=== PATIENT | female | born 1960 | race Hispanic/Latino ===

== ENCOUNTER → 2017-08-23 | Outpatient (CLI) | payer MEDICAID ==
[~2017-08-23] MED LIST: AMLO5TAB2 PO; ASPI-1181 PO; ATOR40TA71 PO; BENZ-51 PO; CITA-107 PO; ERGO500014 PO; FENO54TA6 PO; FERR325T22 PO; FURO20TA4 PO; FUROSEMIDE 10 MG/ML 4ML VIAL ONE; GABA-531 PO; GEMF600T3 PO; GLIM2TAB3 PO; HYDR-3421 PO; INSU100V12 SQ; METO-391 PO; OMEP20CA10 PO; ONDA4TAB9 PO; OSELTAMIVIR PHOSPHATE 75 MG CAP ONE; PARO10TA71 PO; PRAV40TA3 PO; SACU1TAB PO
== END | disposition home or self-care (01) ==
LOC: SHCH 10:30
PROVIDERS: ATTEND Internal Medicine Cardiovascular Disease
DX: I11.0 Hypertensive heart disease with heart failure (principal)
CPT/HCPCS: 93306; J1940

== ENCOUNTER 2017-08-24 17:20 | Inpatient (IN) | payer MEDICAID ==
[~2017-08-24] VITALS: Ht 177.8 cm; Wt 83.9 kg
[~2017-08-24 17:20] MED LIST changes: -ATOR40TA71 PO; -FUROSEMIDE 10 MG/ML 4ML VIAL ONE; -HYDR-3421 PO; -METO-391 PO; -OMEP20CA10 PO; -OSELTAMIVIR PHOSPHATE 75 MG CAP ONE; -PARO10TA71 PO; -SACU1TAB PO
[2017-08-24 17:50] LABS: BASOPHILS % (AUTO) 0.5 % (0.0-5.0); HEMATOCRIT 28.4 % (36-48); LYMPHOCYTES % (AUTO) 8.8 % (21.0-51.0); MEAN CORPUSCULAR HEMOGLOBIN 31.1 pg (27.0-33.0); MEAN CORPUSCULAR HGB CONC 33.8 g/dL (32.0-36.0); MEAN CORPUSCULAR VOLUME 91.9 fL (79-99); MONOCYTES % (AUTO) 9.7 % (3.0-13.0); PLATELET COUNT (AUTO) 145 K/uL (130-400); RED BLOOD CELL COUNT(AUTO) 3.09 MIL/uL (4.00-5.50); RED CELL DISTRIBUTION WIDTH 14.4 % (11.0-15.5); WHITE BLOOD COUNT (AUTO) 6.7 K/uL (4.8-10.8)
[2017-08-24 18:03] LABS: INR 1.05 (0.85-1.15); PARTIAL THROMBOPLASTIN TIME 29.2 SEC (26.3-35.5)
[2017-08-24 18:05] LABS: CARBON DIOXIDE 30 mmol/L (21-32); CHLORIDE 99 mmol/L (101-111); CREATININE 1.9 mg/dL (0.5-1.5); GLOMERULAR FILTR. RATE CALC 29 mL/min (>60); GLUCOSE,RANDOM 275 mg/dL (70-105); POTASSIUM 3.8 mmol/L (3.5-5.1); SODIUM SERUM 137 mmol/L (136-145); UREA NITROGEN, BLOOD 34 mg/dL (7-18)
[2017-08-24 18:20] LABS: ALANINE AMINOTRANSFERASE 18 U/L (12-78); ASPARTATE AMINOTRANSFERASE 30 U/L (10-37); BILIRUBIN,TOTAL 0.6 mg/dL (0.2-1.0); CREATINE KINASE MB < 0.5 ng/mL (0.5-3.6); CREATINE KINASE, TOTAL 24 U/L (21-232); TOTAL PROTEIN, SERUM 7.1 g/dL (6.0-8.3)
[2017-08-24 18:24] LABS: B-TYPE NATRIURETIC PEPTIDE 1450 pg/mL (0-100)
[2017-08-24] MEDS ORDERED: SODIUM CHLORIDE 0.9% 10 ML VIAL IVP PRN (19:45)
[2017-08-24 21:44] LABS: APPEARANCE,URINE Clear (CLEAR); BILIRUBIN,URINE Negative (NEGATIVE); COLOR,URINE Yellow (YELLOW); GLUCOSE, URINE (UA) >=1000 mg/dL (NEGATIVE); KETONES,URINE Negative (NEGATIVE); LEUKOCYTE ESTERASE ,URINE Small (NEGATIVE); NITRATE,URINE Negative (NEGATIVE); OCCULT BLOOD,URINE Negative (NEGATIVE); PH,URINE 5.5 (5.0-8.0); PROTEIN,URINE POS 2+ (NEGATIVE)
[2017-08-24 21:56] LABS: AMPHET/METH SCREEN,URINE NEGATIVE (NEGATIVE); BARBITURATE SCREEN, URINE NEGATIVE (NEGATIVE); BENZODIAZEPINES SCREEN,URINE NEGATIVE (NEGATIVE); CANNABINOID SCREEN,URINE NEGATIVE (NEGATIVE); COCAINE SCREEN,URINE NEGATIVE (NEGATIVE); OPIATE SCREEN,URINE NEGATIVE (NEGATIVE); PHENCYCLIDINE SCREEN,URINE NEGATIVE (NEGATIVE)
[2017-08-24 22:44] VITALS: BP 117/63
[2017-08-24 22:45] LABS: BACTERIA,URINE Few /HPF (None Seen); MUCUS,URINE Moderate LPF (None Seen); RBC,URINE 0-1 /HPF (0-1); SQUAMOUS EPITHELIAL CELL,UR Moderate /LPF (0-2)
[2017-08-25] MEDS ORDERED: OMEP20CA10 PO (00:25)
[2017-08-25] MEDS ORDERED: PARO10TA71 PO (00:25)
[2017-08-25] MEDS ORDERED: HYDR-3421 PO (00:25)
[2017-08-25] MEDS ORDERED: ATOR40TA71 PO (00:25)
[2017-08-25] MEDS ORDERED: METO-391 PO (00:25)
[2017-08-25] MEDS ORDERED: SACU1TAB PO (00:25)
[2017-08-25] MEDS ORDERED: DEXTROSE 50%-WATER 50 ML DISP.SYRIN IV PRN (00:45)
[2017-08-25] MEDS ORDERED: CLONIDINE HCL 0.1 MG TABLET PO PRN (00:45)
[2017-08-25] MEDS ORDERED: DiphenhydrAMINE HCL 50 MG/ML VIAL IVP PRN (00:45)
[2017-08-25] MEDS ORDERED: POTASSIUM CHLORIDE 10% ELIXIR 20 MEQ/15 ML UDCUP PO PRN (00:45)
[2017-08-25] MEDS ORDERED: ONDANSETRON HCL 4 MG/2 ML VIAL IVP PRN (00:45)
[2017-08-25] MEDS ORDERED: MAG HYDROX/AL HYDROX/SIMETH ES 30 ML SUSP UDCUP PO PRN (00:45)
[2017-08-25] MEDS ORDERED: DIPHENHYDRAMINE HCL 25 MG CAPSULE PO PRN (00:45)
[2017-08-25] MEDS ORDERED: GLUCAGON 1MG KIT 1 MG ML IM PRN (00:45)
[2017-08-25] MEDS ORDERED: ACETAMINOPHEN 325 MG TAB PO PRN ×2 (00:45)
[2017-08-25] MEDS ORDERED: NITROGLYCERIN 0.4 MG SL TAB SL PRN (00:45)
[2017-08-25] MEDS ORDERED: LIDOCAINE HCL-MPF 1% 2ML VIAL IJ PRN (00:45)
[2017-08-25] MEDS ORDERED: ZOLPIDEM TARTRATE 5 MG TAB PO PRN (00:45)
[2017-08-25] MEDS ORDERED: GUAIFENESIN-DM 200/20 MG 10 ML PO PRN (00:45)
[2017-08-25] MEDS ORDERED: LACTULOSE 20 GM/30 ML UDCUP PO PRN (00:45)
[2017-08-25] MEDS ORDERED: GUAIFENESIN SUGAR-FREE 100 MG/5 ML UDCUP PO PRN (00:45)
[2017-08-25] MEDS ORDERED: POTASSIUM CHLORIDE 20MEQ/100ML 100 ML IV PRN (00:45)
[2017-08-25 03:00] VITALS: BP 125/68
[2017-08-25 05:45] LABS: HEMATOCRIT 26.6 % (36-48); MEAN CORPUSCULAR HEMOGLOBIN 32.8 pg (27.0-33.0); MEAN CORPUSCULAR HGB CONC 35.8 g/dL (32.0-36.0); MEAN CORPUSCULAR VOLUME 91.7 fL (79-99); PLATELET COUNT (AUTO) 143 K/uL (130-400); RED BLOOD CELL COUNT(AUTO) 2.91 MIL/uL (4.00-5.50); RED CELL DISTRIBUTION WIDTH 14.6 % (11.0-15.5); WHITE BLOOD COUNT (AUTO) 5.9 K/uL (4.8-10.8)
[2017-08-25 06:05] LABS: CREATININE 1.8 mg/dL (0.5-1.5); POTASSIUM 3.4 mmol/L (3.5-5.1)
[2017-08-25] MEDS: POTASSIUM CHLORIDE 20 MEQ ERTAB PO PRN ×2 (06:30→09:55)
[2017-08-25] MEDS ORDERED: COMPOUND PO MISCELLANEOUS 1 EACH MISC MISC PRN (07:00)
[2017-08-25] MEDS ORDERED: INSULIN R PO SS1 SQ SCH (07:30)
[2017-08-25 08:00] VITALS: BP 116/60
[2017-08-25] MEDS ORDERED: FUROSEMIDE 10 MG/ML 4ML VIAL IVP SCH (09:00)
[2017-08-25] MEDS ORDERED: OSELTAMIVIR PHOSPHATE 300 MG, COMPOUNDING VEHICLE SF NO.9 50 ML PO SCH ×2 (09:00)
[2017-08-25] MEDS ORDERED: PNEUMOCOCCAL VACCINE POLYVALENT 0.5 ML/VIAL [PPV] IM SCH (10:45)
[2017-08-25] MEDS ORDERED: OSELTAMIVIR PHOSPHATE 75 MG CAP PO SCH (21:00)
== END 2017-08-25 11:50 | disposition home or self-care (01) | DRG 194 ==
LOC: EDH 17:20 → EDHIP 17:21 → 4BH 21:51
PROVIDERS: ADMIT Family Medicine; ATTEND Family Medicine
DX: I11.0 Hypertensive heart disease with heart failure (principal); E11.40 Type 2 diabetes mellitus with diabetic neuropathy, unspecified; R55 Syncope and collapse; I50.41 Acute combined systolic (congestive) and diastolic (congestive) heart failure; I25.10 Atherosclerotic heart disease of native coronary artery without angina pectoris; E78.5 Hyperlipidemia, unspecified; F32.9 Major depressive disorder, single episode, unspecified; J10.1 Influenza due to other identified influenza virus with other respiratory manifestations; N28.9 Disorder of kidney and ureter, unspecified; F41.9 Anxiety disorder, unspecified
CPT/HCPCS: 36415; 71045; 80048; 80053; 80305; 81001; 82550; 82553; 82948; 83880; 84484; 85025; 85027; 85610; 85730; 87804; 90732; 93005; 93306; J1815; J1940; J2405

== ENCOUNTER 2018-05-17 16:56 | Emergency (ER) | payer MEDICAID, OTHER ==
[~2018-05-17 16:56] MED LIST changes: -AMLO5TAB2 PO; +ATOR40TA71 PO; -CITA-107 PO; -ERGO500014 PO; -FENO54TA6 PO; -GEMF600T3 PO; +GEMF600T4 PO; +HYDR-3421 PO; +METO-391 PO; +OMEP20CA10 PO; -ONDA4TAB9 PO; +PARO10TA71 PO; -PRAV40TA3 PO; +SACU1TAB PO
[2018-05-17] MEDS ORDERED: METOCLOPRAMIDE 10 MG/2 ML VIAL ONE (17:38)
[2018-05-17] MEDS ORDERED: MECLIZINE HCL 25 MG TABLET ONE (17:38)
[2018-05-17] MEDS ORDERED: SODIUM CHLORIDE 0.9% 50 ML IV ONE (17:39)
[2018-05-17 17:40] LABS: APPEARANCE,URINE Cloudy (CLEAR); BILIRUBIN,URINE Negative (NEGATIVE); COLOR,URINE Yellow (YELLOW); GLUCOSE, URINE (UA) Negative (NEGATIVE); KETONES,URINE Negative (NEGATIVE); LEUKOCYTE ESTERASE ,URINE Moderate (NEGATIVE); NITRATE,URINE Negative (NEGATIVE); OCCULT BLOOD,URINE Negative (NEGATIVE); PROTEIN,URINE POS 2+ (NEGATIVE); UROBILINOGEN,URINE 0.2 mg/dL (0.2-1.0)
[2018-05-17 17:45] LABS: BASOPHILS % (AUTO) 0.6 % (0.0-5.0); EOSINOPHILS % (AUTO) 1.6 % (0.0-8.0); HEMATOCRIT 30.3 % (36-48); LYMPHOCYTES % (AUTO) 10.8 % (21.0-51.0); MEAN CORPUSCULAR HEMOGLOBIN 32.8 pg (27.0-33.0); MEAN CORPUSCULAR HGB CONC 34.6 g/dL (32.0-36.0); MONOCYTES % (AUTO) 5.1 % (3.0-13.0); NEUTROPHILS % (AUTO) 81.9 % (40.0-77.0); PLATELET COUNT (AUTO) 194 K/uL (130-400); RED BLOOD CELL COUNT(AUTO) 3.19 MIL/uL (4.00-5.50); RED CELL DISTRIBUTION WIDTH 14.2 % (11.0-15.5); WHITE BLOOD COUNT (AUTO) 7.7 K/uL (4.8-10.8)
[2018-05-17 17:53] LABS: BACTERIA,URINE Rare /HPF (None Seen); RBC,URINE None Seen /HPF (0-1)
[2018-05-17 17:54] LABS: TRANSITIONAL EPI CELLS,URINE Moderate /HPF (None Seen)
[2018-05-17 18:01] LABS: CREATININE 1.6 mg/dL (0.5-1.5); POTASSIUM 4.2 mmol/L (3.5-5.1)
[2018-05-17 18:05] LABS: ALBUMIN 3.4 g/dL (3.5-5.0); BILIRUBIN,TOTAL 0.4 mg/dL (0.2-1.0)
[2018-05-17] MEDS ORDERED: SODIUM CHLORIDE 0.9% 500ML 500 ML IV ONE (18:11)
== END 2018-05-17 19:52 | disposition home or self-care (01) ==
LOC: EDH 16:56
DX: R42 Dizziness and giddiness (principal); R53.1 Weakness; F41.9 Anxiety disorder, unspecified; I11.0 Hypertensive heart disease with heart failure; I50.9 Heart failure, unspecified; I25.10 Atherosclerotic heart disease of native coronary artery without angina pectoris; E11.9 Type 2 diabetes mellitus without complications; E78.5 Hyperlipidemia, unspecified; Z90.49 Acquired absence of other specified parts of digestive tract; Z98.890 Other specified postprocedural states
CPT/HCPCS: 36415; 80053; 81001; 82550; 83605; 84484; 85025; 93005; 96361; 96374; 99285; J2765; J7040

== ENCOUNTER 2018-05-31 05:46 | Observation (INO) | payer MEDICAID ==
[2018-05-29 09:44] LABS: BASOPHILS % (AUTO) 0.6 % (0.0-5.0); EOSINOPHILS % (AUTO) 2.4 % (0.0-8.0); HEMATOCRIT 32.1 % (36-48); LYMPHOCYTES % (AUTO) 12.4 % (21.0-51.0); MEAN CORPUSCULAR HEMOGLOBIN 32.5 pg (27.0-33.0); MEAN CORPUSCULAR HGB CONC 34.7 g/dL (32.0-36.0); MEAN CORPUSCULAR VOLUME 93.6 fL (79-99); NEUTROPHILS % (AUTO) 77.6 % (40.0-77.0); NUCLEATED RED BLOOD CELLS 0.1 % (0.0-0.19); PLATELET COUNT (AUTO) 199 K/uL (130-400); RED BLOOD CELL COUNT(AUTO) 3.43 MIL/uL (4.00-5.50); RED CELL DISTRIBUTION WIDTH 13.9 % (11.0-15.5); WHITE BLOOD COUNT (AUTO) 7.3 K/uL (4.8-10.8)
[2018-05-29 09:45] VITALS: BP 98/61
[2018-05-29 09:54] LABS: POTASSIUM 4.7 mmol/L (3.5-5.1)
[2018-05-29 09:59] LABS: INR 0.98 (0.85-1.15); PARTIAL THROMBOPLASTIN TIME 29.3 SEC (26.3-35.5); PROTHROMBIN TIME 10.3 SEC (9.6-11.6)
[~2018-05-31] VITALS: Ht 175.3 cm; Wt 88.6 kg
[2018-05-31] VITALS (12 sets, daily range): BP systolic 95–116; BP diastolic 54–71
[~2018-05-31 05:46] MED LIST changes: +ALEN70TA47 PO; -BENZ-51 PO; +CARV6.25 PO; +ERGO500014 PO; -GLIM2TAB3 PO; -HYDR-3421 PO; +HYDR-4153 PO; +INSU100I24 SQ; -INSU100V12 SQ; +ISOS30TA6 PO; +LIRA0.6P SQ; +LORA10TA7 PO; +MECL-111 PO; -METO-391 PO; +MONT10TA24 PO; -SACU1TAB PO; +SPIR25TA6 PO
[2018-05-31] MEDS ORDERED: SODIUM CHLORIDE 0.9% 1000ML 1,000 ML IV ONE (06:56)
[2018-05-31] MEDS: INSULIN R PO SS1 SQ SCH ×4 (07:00→21:49)
[2018-05-31] MEDS ORDERED: GLUCAGON 1MG KIT 1 MG ML IM PRN ×2 (07:00→09:00)
[2018-05-31] MEDS ORDERED: PHARMACY COMMUNICATION MISC SCH (07:00)
[2018-05-31] MEDS ORDERED: DEXTROSE 50%-WATER 50 ML DISP.SYRIN IV PRN ×2 (07:00→09:00)
[2018-05-31] MEDS ORDERED: BUPIVACAINE/PF 0.25% 50ML VIAL IJ ONE (07:14)
[2018-05-31] MEDS ORDERED: LIDOCAINE HCL 1% MDV 50ML VIAL ONE (07:14)
[2018-05-31] MEDS ORDERED: CEFAZOLIN SODIUM 1 GM VIAL ONE (07:15)
[2018-05-31] MEDS ORDERED: MIDAZOLAM HCL 1 MG/ML 2ML VIAL ONE ×2 (07:52→08:07)
[2018-05-31] MEDS ORDERED: MEPERIDINE-PF 25 MG/ML SYG ONE ×2 (07:52→08:08)
[2018-05-31] MEDS: HYDRALAZINE HCL 25 MG TABLET PO SCH ×3 (09:00→21:36)
[2018-05-31] MEDS ORDERED: ACETAMINOPHEN-CODEINE 300/30MG TAB PO PRN ×2 (09:00)
[2018-05-31] MEDS: SPIRONOLACTONE 25 MG TAB PO SCH ×3 (09:00→21:00)
[2018-05-31] MEDS ORDERED: ACETAMINOPHEN 325 MG TAB PO PRN (09:00)
[2018-05-31] MEDS ORDERED: ONDANSETRON HCL 4 MG/2 ML VIAL IV PRN (09:00)
[2018-05-31] MEDS: ISOSORBIDE MONO 30MG TAB SR PO SCH ×2 (09:00→10:10)
[2018-05-31] MEDS: FUROSEMIDE 20 MG TABLET PO SCH ×3 (09:00→21:00)
[2018-05-31] MEDS: CARVEDILOL 6.25 MG TABLET PO SCH ×2 (10:08→21:37)
[2018-05-31] MEDS: GEMFIBROZIL 600 MG TABLET PO SCH ×2 (10:08→21:38)
[2018-05-31] MEDS: GABAPENTIN 300 MG CAPSULE PO SCH ×3 (10:13→21:37)
[2018-05-31] MEDS: PANTOPRAZOLE SODIUM 40 MG TABLET.DR PO SCH (10:13)
[2018-05-31] MEDS: PAROXETINE HCL 20 MG TABLET PO SCH (10:14)
[2018-05-31] MEDS: INSULIN HUMULIN R 100 UNIT/ML 3ML SQ SCH ×3 (11:30→21:00)
[2018-05-31] MEDS ORDERED: FERROUS SULFATE 325 MG TABLET.DR PO SCH (17:00)
[2018-05-31] MEDS ORDERED: MONTELUKAST SODIUM 10 MG TAB PO SCH (21:00)
[2018-05-31] MEDS ORDERED: LORATADINE 10 MG TABLET PO SCH (21:00)
[2018-05-31] MEDS ORDERED: ATORVASTATIN CALCIUM 40 MG TABLET PO SCH (21:00)
[2018-06-01 03:00] VITALS: BP 121/72
[2018-06-01 03:43] LABS: HEMATOCRIT 29.7 % (36-48); MEAN CORPUSCULAR HEMOGLOBIN 31.9 pg (27.0-33.0); MEAN CORPUSCULAR HGB CONC 34.1 g/dL (32.0-36.0); MEAN CORPUSCULAR VOLUME 93.4 fL (79-99); PLATELET COUNT (AUTO) 161 K/uL (130-400); RED BLOOD CELL COUNT(AUTO) 3.18 MIL/uL (4.00-5.50); WHITE BLOOD COUNT (AUTO) 9.8 K/uL (4.8-10.8)
[2018-06-01 03:49] LABS: CREATININE 1.9 mg/dL (0.5-1.5); POTASSIUM 4.3 mmol/L (3.5-5.1)
[2018-06-01] MEDS: PANTOPRAZOLE SODIUM 40 MG TABLET.DR PO SCH (07:02)
[2018-06-01] MEDS: INSULIN R PO SS1 SQ SCH ×2 (07:02→11:30)
[2018-06-01 07:29] VITALS: BP 132/73
[2018-06-01] MEDS: INSULIN HUMULIN R 100 UNIT/ML 3ML SQ SCH (07:30)
[2018-06-01] MEDS ORDERED: INSULIN DEGLUDEC 40 UNIT SQ SCH ×2 (08:00)
[2018-06-01] MEDS ORDERED: ASPIRIN 81 MG EC TAB PO SCH (09:00)
[2018-06-01] MEDS: GABAPENTIN 300 MG CAPSULE PO SCH (10:49)
[2018-06-01] MEDS: SPIRONOLACTONE 25 MG TAB PO SCH (10:50)
[2018-06-01] MEDS: ISOSORBIDE MONO 30MG TAB SR PO SCH (10:50)
[2018-06-01] MEDS: GEMFIBROZIL 600 MG TABLET PO SCH (10:50)
[2018-06-01] MEDS: HYDRALAZINE HCL 25 MG TABLET PO SCH (10:51)
[2018-06-01] MEDS: PAROXETINE HCL 20 MG TABLET PO SCH (10:52)
[2018-06-01] MEDS: CARVEDILOL 6.25 MG TABLET PO SCH (10:53)
[2018-06-01] MEDS: FUROSEMIDE 20 MG TABLET PO SCH (10:54)
[2018-06-01 11:15] VITALS: BP 111/69
== END 2018-06-01 14:45 | disposition home or self-care (01) ==
LOC: SUH 05:46 → DAH 05:46 → 2AH 05:47 → SUH 05:47
PROVIDERS: ADMIT Internal Medicine; ATTEND Internal Medicine
DX: I25.5 Ischemic cardiomyopathy (principal); I11.0 Hypertensive heart disease with heart failure; I50.22 Chronic systolic (congestive) heart failure; E11.40 Type 2 diabetes mellitus with diabetic neuropathy, unspecified; E78.5 Hyperlipidemia, unspecified; I25.2 Old myocardial infarction; I25.10 Atherosclerotic heart disease of native coronary artery without angina pectoris; F32.9 Major depressive disorder, single episode, unspecified; F41.9 Anxiety disorder, unspecified; Z82.3 Family history of stroke; Z82.49 Family history of ischemic heart disease and other diseases of the circulatory system; Z83.3 Family history of diabetes mellitus
CPT/HCPCS: 33249; 36415 ×2; 71046; 80048 ×2; 82948 ×6; 85025; 85027; 85610; 85730; 96372 ×2; A4606; C1722; C1895; G0378 ×33; J0690; J1815 ×6; J2175 ×2; J2250 ×2; J3490 ×2; J7030; 99156; 99157

== ENCOUNTER 2018-06-03 16:48 | Emergency (ER) | payer MEDICAID ==
[2018-06-03 18:50] LABS: BASOPHILS % (AUTO) 0.5 % (0.0-5.0); EOSINOPHILS % (AUTO) 3.1 % (0.0-8.0); HEMATOCRIT 29.5 % (36-48); LYMPHOCYTES % (AUTO) 10.4 % (21.0-51.0); MEAN CORPUSCULAR HEMOGLOBIN 31.2 pg (27.0-33.0); MEAN CORPUSCULAR HGB CONC 33.2 g/dL (32.0-36.0); PLATELET COUNT (AUTO) 169 K/uL (130-400); RED BLOOD CELL COUNT(AUTO) 3.14 MIL/uL (4.00-5.50); RED CELL DISTRIBUTION WIDTH 13.9 % (11.0-15.5); WHITE BLOOD COUNT (AUTO) 8.6 K/uL (4.8-10.8)
[2018-06-03 19:17] LABS: POTASSIUM 4.3 mmol/L (3.5-5.1)
[2018-06-03] MEDS ORDERED: INSULIN HUMULIN R 100 UNIT/ML 3ML ONE (19:29)
== END 2018-06-03 19:52 | disposition home or self-care (01) ==
LOC: EDH 16:48
DX: Z48.01 Encounter for change or removal of surgical wound dressing (principal); E11.65 Type 2 diabetes mellitus with hyperglycemia; E11.40 Type 2 diabetes mellitus with diabetic neuropathy, unspecified; I11.0 Hypertensive heart disease with heart failure; I50.9 Heart failure, unspecified; I25.10 Atherosclerotic heart disease of native coronary artery without angina pectoris; E78.5 Hyperlipidemia, unspecified
CPT/HCPCS: 36415; 71045; 76882; 80048; 85025; 93005; 96372; 99285; J1815

== ENCOUNTER 2018-08-27 17:46 | Emergency (ER) | payer MEDICAID ==
[~2018-08-27 17:46] MED LIST changes: +ALEN70TA10 PO; -ALEN70TA47 PO; -GEMF600T4 PO; +GEMF600T5 PO
[2018-08-27] MEDS ORDERED: FUROSEMIDE 10 MG/ML 2ML VIAL ONE (18:35)
[2018-08-27] MEDS ORDERED: FUROSEMIDE 10 MG/ML 4ML VIAL ONE (18:35)
[2018-08-27 18:53] LABS: BASOPHILS % (AUTO) 0.7 % (0.0-5.0); EOSINOPHILS % (AUTO) 1.7 % (0.0-8.0); HEMATOCRIT 28.8 % (36-48); LYMPHOCYTES % (AUTO) 11.5 % (21.0-51.0); MEAN CORPUSCULAR HEMOGLOBIN 30.3 pg (27.0-33.0); MEAN CORPUSCULAR HGB CONC 32.4 g/dL (32.0-36.0); MEAN CORPUSCULAR VOLUME 93.6 fL (79-99); MONOCYTES % (AUTO) 6.4 % (3.0-13.0); NEUTROPHILS % (AUTO) 79.7 % (40.0-77.0); PLATELET COUNT (AUTO) 213 K/uL (130-400); RED BLOOD CELL COUNT(AUTO) 3.08 MIL/uL (4.00-5.50); RED CELL DISTRIBUTION WIDTH 15.1 % (11.0-15.5); WHITE BLOOD COUNT (AUTO) 7.5 K/uL (4.8-10.8)
[2018-08-27 19:06] LABS: CREATININE 1.4 mg/dL (0.5-1.5); POTASSIUM 4.8 mmol/L (3.5-5.1)
[2018-08-27 19:28] LABS: B-TYPE NATRIURETIC PEPTIDE 1670 pg/mL (0-100)
== END 2018-08-27 20:01 | disposition home or self-care (01) ==
LOC: EDH 17:46
DX: I11.0 Hypertensive heart disease with heart failure (principal); I50.23 Acute on chronic systolic (congestive) heart failure; F41.9 Anxiety disorder, unspecified; I25.10 Atherosclerotic heart disease of native coronary artery without angina pectoris; E11.40 Type 2 diabetes mellitus with diabetic neuropathy, unspecified; E78.5 Hyperlipidemia, unspecified
CPT/HCPCS: 36415; 71046; 80048; 83880; 84484; 85025; 93005; 96374; 99284; J1940 ×2

== ENCOUNTER 2018-11-29 21:13 | Inpatient (IN) | payer MEDICAID ==
[~2018-11-29] VITALS: Ht 175.3 cm; Wt 86.4 kg
[~2018-11-29 21:13] MED LIST changes: +OMEP-50 PO; -OMEP20CA10 PO
[2018-11-29 22:03] LABS: BASOPHILS % (AUTO) 0.7 % (0.0-5.0); EOSINOPHILS % (AUTO) 0.3 % (0.0-8.0); HEMATOCRIT 32.5 % (36-48); LYMPHOCYTES % (AUTO) 11.9 % (21.0-51.0); MEAN CORPUSCULAR HEMOGLOBIN 29.7 pg (27.0-33.0); MEAN CORPUSCULAR HGB CONC 33.6 g/dL (32.0-36.0); MEAN CORPUSCULAR VOLUME 88.3 fL (79-99); MONOCYTES % (AUTO) 10.3 % (3.0-13.0); NEUTROPHILS % (AUTO) 76.8 % (40.0-77.0); NUCLEATED RED BLOOD CELLS 0.1 % (0.0-0.19); PLATELET COUNT (AUTO) 114 K/uL (130-400); RED BLOOD CELL COUNT(AUTO) 3.68 MIL/uL (4.00-5.50); RED CELL DISTRIBUTION WIDTH 17.6 % (11.0-15.5); WHITE BLOOD COUNT (AUTO) 5.8 K/uL (4.8-10.8)
[2018-11-29 22:13] LABS: INR 1.09 (0.85-1.15); PARTIAL THROMBOPLASTIN TIME 30.8 SEC (26.3-35.5); PROTHROMBIN TIME 11.4 SEC (9.6-11.6)
[2018-11-29 22:15] LABS: CREATININE 2.2 mg/dL (0.5-1.5); POTASSIUM 4.6 mmol/L (3.5-5.1)
[2018-11-29 22:28] LABS: ABG BASE EXCESS 0.3 mmol/L (-2.0-3.0); ABG HCO3 23.6 mmol/L (21.0-28.0); ABG OXYGEN SATURATION 96.3 % (95.0-99.0); ABG PCO2 34 mmHg (32-45)
[2018-11-29 22:37] LABS: ALBUMIN 3.2 g/dL (3.5-5.0); BILIRUBIN,TOTAL 0.8 mg/dL (0.2-1.0); TOTAL PROTEIN, SERUM 7.5 g/dL (6.0-8.3)
[2018-11-29 22:41] LABS: TROPONIN I 1.03 ng/mL (0.00-0.06)
[2018-11-29] MEDS ORDERED: FUROSEMIDE 10 MG/ML 2ML VIAL ONE (23:11)
[2018-11-29] MEDS ORDERED: ASPIRIN 325 MG TABLET ONE (23:11)
[2018-11-29] MEDS ORDERED: HEPARIN SODIUM 5000UNIT/ML 1ML VIAL ONE (23:12)
[2018-11-29] MEDS ORDERED: HEPARIN 25000 UNITS/250 ML D5W 250 ML IV ONE (23:13)
[2018-11-30] VITALS (12 sets, daily range): BP systolic 87–118; BP diastolic 55–74
--- NOTE | 2018-11-30 00:25 | NUR ---
ASSESSMENT PATIENT TRANSFERRED FROM [facility]. DX: NSTEMI. PATIENT DENIES CHEST PAIN. PATIENT STATES FEELS "GENERALLY WEAK." O2 @ 2L - NASAL CANNULA. RESPIRATIONS UNLABORED. SINUS RHYTHM HR 60'S. HEPARIN DRIP INFUSING AT 1050 UNITS/HR (10.5 ML/HR). REMINDED PATIENT NPO AFTER MIDNIGHT. POSSIBLE PROCEDURE IN A.M. PATIENT VERBALIZED UNDERSTANDING. SEE DOCUMENTATION FOR FULL ASSESSMENT. CALL LIGHT WITHIN REACH. INSTRUCTED PATIENT TO CALL IF ASSISTANCE IS NEEDED.
[2018-11-30] MEDS ORDERED: INSU100I24 SQ (00:57)
[2018-11-30] MEDS ORDERED: MORPHINE SULFATE 2 MG/ML 1ML SYG IVP PRN (01:00)
[2018-11-30] MEDS ORDERED: HEPARIN 25,000 UNITS/250 ML IV PRN (01:00)
[2018-11-30] MEDS ORDERED: NITROGLYCERIN 0.4 MG SL TAB SL PRN (01:00)
[2018-11-30] MEDS ORDERED: ONDANSETRON HCL 4 MG/2 ML VIAL IVP PRN (01:00)
[2018-11-30] MEDS ORDERED: ACETAMINOPHEN 325 MG TAB PO PRN (01:00)
[2018-11-30] MEDS ORDERED: IPRATROPIUM/ALBUTEROL SULFATE 3 ML SOLUTION IH PRN (01:00)
[2018-11-30] MEDS ORDERED: GLIM2TAB3 PO (02:55)
[2018-11-30] MEDS ORDERED: BENZ-51 PO (02:55)
[2018-11-30] MEDS ORDERED: ISOS30TA6 PO ×2 (02:55→06:23)
[2018-11-30] MEDS ORDERED: FERR325T22 PO (02:55)
[2018-11-30] MEDS ORDERED: SPIR25TA6 PO ×2 (02:55→06:23)
[2018-11-30] MEDS ORDERED: METO5TAB7 PO (02:55)
[2018-11-30 03:49] LABS: HEMATOCRIT 31.2 % (36-48); MEAN CORPUSCULAR HEMOGLOBIN 28.9 pg (27.0-33.0); MEAN CORPUSCULAR HGB CONC 32.8 g/dL (32.0-36.0); MEAN CORPUSCULAR VOLUME 87.9 fL (79-99); PLATELET COUNT (AUTO) 117 K/uL (130-400); RED BLOOD CELL COUNT(AUTO) 3.55 MIL/uL (4.00-5.50); RED CELL DISTRIBUTION WIDTH 17.5 % (11.0-15.5); WHITE BLOOD COUNT (AUTO) 5.1 K/uL (4.8-10.8)
[2018-11-30 04:22] LABS: ALBUMIN 2.9 g/dL (3.5-5.0); BILIRUBIN,TOTAL 0.7 mg/dL (0.2-1.0); CREATININE 2.2 mg/dL (0.5-1.5); POTASSIUM 4.4 mmol/L (3.5-5.1); TOTAL PROTEIN, SERUM 7.2 g/dL (6.0-8.3)
[2018-11-30 04:35] LABS: TROPONIN I 1.26 ng/mL (0.00-0.06)
[2018-11-30 07:25] LABS: APPEARANCE,URINE Clear (CLEAR); BILIRUBIN,URINE Negative (NEGATIVE); COLOR,URINE Yellow (YELLOW); GLUCOSE, URINE (UA) Negative (NEGATIVE); KETONES,URINE Negative (NEGATIVE); LEUKOCYTE ESTERASE ,URINE Trace (NEGATIVE); NITRATE,URINE Negative (NEGATIVE); OCCULT BLOOD,URINE Negative (NEGATIVE); PROTEIN,URINE POS 2+ mg/dL (NEGATIVE); UROBILINOGEN,URINE 0.2 mg/dL (0.2-1.0)
[2018-11-30 07:59] LABS: BACTERIA,URINE Few /HPF (None Seen); RBC,URINE 0-1 /HPF (0-1); WBC,URINE 0-1 /HPF (0-1)
--- NOTE | 2018-11-30 11:07 | NUR ---
Nutrition Intervention: Nutrition consult due to nutrition screening trigger. Pt. admitted with Dx of N Stemi. Pt. NPO. Pt. reports has lost 22#(10% of UBW) in ~2 1/2 weeks due to feeling nauseous and decreased appetite. Labs reviewed(Alb 2.9, BUN 59, Creat 2.2, GFR 24). LBM: 11/28/18. SR-18, elastic. BMI: 28.4, overweight. Recommendations: 1) When medically feasible, rec. advance diet as tolerated to 75gm CCD Renal Non dialysis diet. 2) Continue to monitor pt's nutritional status and diet advancement. 3) Consult RD as nutrition concerns arise. Addendum: 11/30/18 at [address] Amended: Links added.
[2018-11-30 11:11] LABS: TROPONIN I 1.18 ng/mL (0.00-0.06)
[2018-11-30] MEDS ORDERED: SODIUM CHLORIDE 0.9% 500ML 500 ML IV SCH (17:00)
--- NOTE | 2018-11-30 17:00 | NUR ---
DC PLAN VISITED WITH PATIENT. PATIENT LIVES WITH SPOUSE. INDEPENDENT ABLE TO PERFORM ADL'S. PATIENT HAS WALKER. PROVIDER 26 HRS A WEEK. FEELS SAFE TO RETURN HOME. Addendum: 11/30/18 at 1701 by FARIBA ODEN RN CM Amended: Links added.
[2018-11-30] MEDS: ATORVASTATIN CALCIUM 40 MG TABLET PO SCH (20:59)
--- NOTE | 2018-11-30 21:00 | NUR ---
PT IN BED, COUGHING NOTED. STATES HAS HAD COUGH FOR DAYS. HAS HER HOME MED OF TESSALON PEARLS. PT REQUESTED FOR HER OXYGEN LEVEL TO BE CHECKED. CONTINUES WITH NAUSEA AND VOMITING. WAS GIVEN ZOFRAN EARLIER. PT STATES HAS NOT REALLY ALLEVIATED HER SYMPTOMS.
--- NOTE | 2018-11-30 23:00 | NUR ---
NEW 20G TO LEFT FOREARM STARTED. C/O OF PAIN TO IV IN LEFT HAND.
[2018-12-01] VITALS (7 sets, daily range): BP systolic 102–112; BP diastolic 61–72
[2018-12-01 04:17] LABS: CREATININE 2.6 mg/dL (0.5-1.5); POTASSIUM 5.5 mmol/L (3.5-5.1)
--- NOTE | 2018-12-01 08:00 | NUR ---
ASSESSMENT PT IS AAXO4 DENIES CP DENIES SOB DENIES NV NO COMPLAINTS RESTING IN BED. CALL LIGHT WITHIN REACH. VISITORS AT BEDSIDE.
[2018-12-01] MEDS: ISOSORBIDE MONO 30MG TAB SR PO SCH (08:01)
[2018-12-01] MEDS: ASPIRIN 81MG TAB.CHEW PO SCH (08:01)
[2018-12-01] MEDS: PAROXETINE HCL 20 MG TABLET PO SCH (08:02)
[2018-12-01] MEDS: FERROUS SULFATE 325 MG TABLET.DR PO SCH ×2 (08:02→16:28)
[2018-12-01] MEDS: CARVEDILOL 6.25 MG TABLET PO SCH ×2 (08:02→19:39)
[2018-12-01] MEDS: HYDRALAZINE HCL 25 MG TABLET PO SCH ×2 (08:02→19:38)
[2018-12-01] MEDS: ENOXAPARIN SODIUM 30 MG/0.3 ML SQ SCH (08:03)
[2018-12-01] MEDS ORDERED: FUROSEMIDE 40 MG TABLET PO SCH (09:00)
[2018-12-01] MEDS ORDERED: SPIRONOLACTONE 25 MG TAB PO SCH (09:00)
[2018-12-01] MEDS ORDERED: SODIUM CHLORIDE 0.9% 1000ML 1,000 ML IV SCH (09:15)
--- NOTE | 2018-12-01 12:00 | NUR ---
MD ROUNDS DR ROWE AND DR Arlene HOOK ROUNDED ORDERS RECEIVED
[2018-12-01] MEDS ORDERED: ZOLPIDEM TARTRATE 5 MG TAB PO PRN (13:15)
[2018-12-01] MEDS ORDERED: BENZONATATE 100 MG CAPSULE PO PRN (13:30)
--- NOTE | 2018-12-01 17:17 | NUR ---
STATUS SITTING UPRIGHT IN BED EATING DINNER. CALL LIGHT WITHIN REACH. VISITORS AT BEDSIDE.
[2018-12-01 18:21] LABS: CREATININE 2.4 mg/dL (0.5-1.5); POTASSIUM 4.7 mmol/L (3.5-5.1)
[2018-12-01] MEDS: ATORVASTATIN CALCIUM 40 MG TABLET PO SCH (19:38)
--- NOTE | 2018-12-01 21:00 | NUR ---
PT CONTINUES WITH A COUGH. BUT LESS FREQUENT. DRY. REQUESTING HER TESSALON PEARLS AND ALSO ZOLPIDEM TO HELP WITH SLEEP. NO DISTRESS NOTED. IV FLUIDS RUNNING X1 LITER. NO CHEST PAIN. NO SOB. ROOM AIR. ABLE TO AMBULATE WITH ASSIST. GAIT IS UNSTEADY.
[2018-12-02 03:00] VITALS: BP 130/69
[2018-12-02 03:29] LABS: CREATININE 2.3 mg/dL (0.5-1.5); POTASSIUM 4.6 mmol/L (3.5-5.1)
[2018-12-02 07:29] VITALS: BP 104/60
[2018-12-02] MEDS: ISOSORBIDE MONO 30MG TAB SR PO SCH (07:47)
[2018-12-02] MEDS: FERROUS SULFATE 325 MG TABLET.DR PO SCH (07:47)
[2018-12-02] MEDS: HYDRALAZINE HCL 25 MG TABLET PO SCH (07:47)
[2018-12-02] MEDS: CARVEDILOL 6.25 MG TABLET PO SCH (07:47)
[2018-12-02] MEDS: ASPIRIN 81MG TAB.CHEW PO SCH (07:47)
[2018-12-02] MEDS: PAROXETINE HCL 20 MG TABLET PO SCH (07:48)
[2018-12-02] MEDS: ENOXAPARIN SODIUM 30 MG/0.3 ML SQ SCH (07:48)
--- NOTE | 2018-12-02 08:00 | NUR ---
ASSESSMENT PT IS AAOX4 DENIES CP DENIES SOB DENIES NV NO COMPLAINTS. CALL LIGHT WITHIN REACH. FAMILY IS AT BEDSIDE.
--- NOTE | 2018-12-02 11:00 | NUR ---
MD ROUNDS DR ZARCO AND DR Arlene HOOK ROUNDED. OK TO [facility] HOME.
[2018-12-02 11:40] VITALS: BP 106/71
--- NOTE | 2018-12-02 12:31 | NUR ---
DC TO HOME PT AND FAMILY VERBALIZE DC INSTRUCTIONS UNDERSTANDING. AGREE TO TAKE MEDS ORDERED AND FOLLOW UP WITH MD ORDERED PIV REMOVED CATH TIP INTACT, TELE PACK REMOVED. ALL BELONGINGS TAKEN WITH PATIENT. DOWN VIA WC.
== END 2018-12-02 12:13 | disposition home or self-care (01) | DRG 422 ==
LOC: EDH 21:13 → EDHIP 21:14 → 2DH 11-30 00:33
PROVIDERS: ADMIT Internal Medicine Critical Care Medicine; ATTEND Internal Medicine Critical Care Medicine
DX: E86.9 Volume depletion, unspecified (principal); I21.A1 Myocardial infarction type 2; N17.9 Acute kidney failure, unspecified; E11.22 Type 2 diabetes mellitus with diabetic chronic kidney disease; N18.3 Chronic kidney disease, stage 3 (moderate); I13.0 Hypertensive heart and chronic kidney disease with heart failure and stage 1 through stage 4 chronic kidney disease, or unspecified chronic kidney disease; I50.84 End stage heart failure; I95.1 Orthostatic hypotension; E11.40 Type 2 diabetes mellitus with diabetic neuropathy, unspecified; I42.0 Dilated cardiomyopathy; I50.22 Chronic systolic (congestive) heart failure; E87.5 Hyperkalemia; I25.5 Ischemic cardiomyopathy; E78.5 Hyperlipidemia, unspecified; F41.8 Other specified anxiety disorders; I25.10 Atherosclerotic heart disease of native coronary artery without angina pectoris; I27.20 Pulmonary hypertension, unspecified; I34.0 Nonrheumatic mitral (valve) insufficiency; T50.2X5A Adverse effect of carbonic-anhydrase inhibitors, benzothiadiazides and other diuretics, initial encounter; W06.XXXA Fall from bed, initial encounter; Z95.810 Presence of automatic (implantable) cardiac defibrillator; I25.2 Old myocardial infarction; Z79.82 Long term (current) use of aspirin; Z79.899 Other long term (current) drug therapy; Z95.5 Presence of coronary angioplasty implant and graft; Y93.89 Activity, other specified; Y92.092 Bedroom in other non-institutional residence as the place of occurrence of the external cause; Y99.8 Other external cause status
CPT/HCPCS: 36415; 36600; 71045; 80048; 80053; 81001; 82550; 82803; 83605; 83874; 83880; 84132; 84484; 85025; 85027; 85610; 85730; 87040; 87088; 93005; 94664; 99291; G0378; J1644; J1650; J1940; J2405; J7030

== ENCOUNTER 2019-01-11 10:18 | Emergency (ER) | payer MEDICAID ==
[~2019-01-11 10:18] MED LIST changes: +BENZ-51 PO; -GEMF600T5 PO; +GLIM2TAB3 PO; -LORA10TA7 PO; -MECL-111 PO; -MONT10TA24 PO; -OMEP-50 PO
== END 2019-01-11 11:15 | disposition home or self-care (01) ==
LOC: EDH 10:18
DX: S92.351A Displaced fracture of fifth metatarsal bone, right foot, initial encounter for closed fracture (principal); I11.0 Hypertensive heart disease with heart failure; I50.9 Heart failure, unspecified; E78.5 Hyperlipidemia, unspecified; E11.40 Type 2 diabetes mellitus with diabetic neuropathy, unspecified; Z90.49 Acquired absence of other specified parts of digestive tract; Z98.890 Other specified postprocedural states; X58.XXXA Exposure to other specified factors, initial encounter; Y93.89 Activity, other specified; Y92.89 Other specified places as the place of occurrence of the external cause; Y99.8 Other external cause status
CPT/HCPCS: 29515; 73630

== ENCOUNTER 2019-10-05 17:58 | Emergency (ER) | payer MEDICAID ==
[~2019-10-05 17:58] MED LIST changes: -GLIM2TAB3 PO; +GLIM2TAB30 PO
[2019-10-05 18:55] LABS: BASOPHILS % (AUTO) 0.6 % (0.0-5.0); EOSINOPHILS % (AUTO) 2.2 % (0.0-8.0); HEMATOCRIT 32.3 % (36-48); LYMPHOCYTES % (AUTO) 11.1 % (21.0-51.0); MEAN CORPUSCULAR HEMOGLOBIN 29.9 pg (27.0-33.0); MEAN CORPUSCULAR HGB CONC 32.5 g/dL (32.0-36.0); MONOCYTES % (AUTO) 5.3 % (3.0-13.0); NEUTROPHILS % (AUTO) 80.4 % (40.0-77.0); PLATELET COUNT (AUTO) 161 K/uL (130-400); RED BLOOD CELL COUNT(AUTO) 3.51 MIL/uL (4.00-5.50); RED CELL DISTRIBUTION WIDTH 14.9 % (11.0-15.5); WHITE BLOOD COUNT (AUTO) 8.4 K/uL (4.8-10.8)
[2019-10-05 18:59] LABS: POTASSIUM 4.7 mmol/L (3.5-5.1)
[2019-10-05 19:13] LABS: ALBUMIN 3.5 g/dL (3.5-5.0); BILIRUBIN,TOTAL 0.7 mg/dL (0.2-1.0); CREATININE 2.3 mg/dL (0.5-1.5); TOTAL PROTEIN, SERUM 8.5 g/dL (6.0-8.3)
[2019-10-05] MEDS ORDERED: SODIUM CHLORIDE 0.9% 1000ML 1,000 ML IV ONE (19:20)
== END 2019-10-05 22:38 | disposition home or self-care (01) ==
LOC: EDH 17:58
DX: R55 Syncope and collapse (principal); R19.7 Diarrhea, unspecified; E11.9 Type 2 diabetes mellitus without complications; I11.0 Hypertensive heart disease with heart failure; I50.9 Heart failure, unspecified; I25.10 Atherosclerotic heart disease of native coronary artery without angina pectoris; F32.9 Major depressive disorder, single episode, unspecified; F41.9 Anxiety disorder, unspecified
CPT/HCPCS: 36415; 80053; 85025; 93005; 96360; 96361; 99284; J7030